=== PATIENT | male | born 1975 | race Caucasian/White ===

== ENCOUNTER 2024-12-26 11:05 | Inpatient (IN) | payer OTHER ==
[~2024-12-26] VITALS: Ht 177.8 cm; Wt 143.8 kg
[~2024-12-26 11:05] MED LIST: CEPH-558 PO; DOXY-354 PO; LISI-893 PO; SERT-158 PO
[2024-12-26] MEDS ORDERED: ZOLPIDEM TARTRATE 10 MG TABLET PO PRN (11:45)
[2024-12-26 12:03] LABS: PLATELET COUNT (AUTO) 274 K/uL (150-450); RED BLOOD CELL COUNT(AUTO) 5.33 MIL/uL (4.50-5.90); RED CELL DISTRIBUTION WIDTH 14.5 % (11.5-14.5); WHITE BLOOD COUNT (AUTO) 8.9 K/uL (4.5-11.0)
[2024-12-26 12:04] LABS: COVID AG,FIA SOURCE NASAL SWAB
[2024-12-26 12:10] LABS: CALCIUM, TOTAL 8.2 mg/dL (8.8-10.5); CREATININE 0.65 mg/dL (0.60-1.30); GLOMERULAR FILTR. RATE CALC > 60 mL/min (>60); GLUCOSE,RANDOM 114 mg/dL (70-110); SODIUM SERUM 139 mmol/L (136-145); UREA NITROGEN, BLOOD 10 mg/dL (7-18)
[2024-12-26 12:18] LABS: APPEARANCE,URINE CLEAR (CLEAR); GLUCOSE, URINE (UA) NEGATIVE (NEGATIVE); LEUKOCYTE ESTERASE ,URINE NEGATIVE (NEGATIVE); NITRATE,URINE NEGATIVE (NEGATIVE); OCCULT BLOOD,URINE NEGATIVE (NEGATIVE); PH,URINE DRUG SCREEN 6.5 (5.0-8.0); SPECIFIC GRAVITIY, URINE 1.026 (1.003-1.030)
[2024-12-26 12:23] LABS: SARS-COV2 (COVID) ANTIGEN,FIA Negative (Negative)
[2024-12-26 12:25] LABS: ALCOHOL, URINE DRUG SCREEN NEGATIVE (NEGATIVE); AMPHET/METH SCREEN,URINE NEGATIVE (NEGATIVE); BARBITURATE SCREEN, URINE NEGATIVE (NEGATIVE); CANNABINOID SCREEN,URINE NEGATIVE (NEGATIVE); COCAINE SCREEN,URINE NEGATIVE (NEGATIVE); METHADONE SCREEN, URINE NEGATIVE (NEGATIVE)
[2024-12-26] MEDS ORDERED: ZOLPIDEM TARTRATE 5 MG TABLET PO PRN (14:15)
[2024-12-26] MEDS ORDERED: MAGNESIUM HYDROXIDE SUSPENSION 30 ML UDCUP PO PRN (14:15)
[2024-12-26] MEDS ORDERED: ONDANSETRON HCL 4 MG/2 ML VIAL IVP PRN (14:15)
[2024-12-26] MEDS ORDERED: BISACODYL 10 MG RECTAL RECTAL SUPPOSITORY PR PRN (14:15)
[2024-12-26] MEDS ORDERED: ACETAMINOPHEN 325 MG TABLET PO PRN (14:15)
[2024-12-26 15:28] VITALS: BP 143/89; PULSE 103; RESP 18; TEMP 98.1; O2SAT 99
[2024-12-26] MEDS: SERTRALINE HCL 50 MG TABLET PO SCH (15:48)
[2024-12-26] MEDS: VANCOMYCIN 1.5 GM/WATER(PEG) 300 ML IV ONE (15:48)
[2024-12-26] MEDS: SODIUM CHLORIDE 0.9% 1,000 ML IV ONE (15:48)
[2024-12-26] MEDS: HEPARIN SODIUM,PORCINE 5,000 UNITS/ML VIAL SQ SCH (15:48)
[2024-12-26 20:00] VITALS: BP 121/85; PULSE 105; RESP 18; TEMP 100.2; O2SAT 93
[2024-12-26] MEDS: HYDROCODONE/ACETAMINOPHEN 5-325 MG TABLET PO PRN (20:17)
[2024-12-26] MEDS: DOCUSATE SODIUM 100 MG CAPSULE PO SCH (21:00)
[2024-12-27] MEDS: VANCOMYCIN 1.25 GM/WATER(PEG) 250 ML IV SCH (00:10)
[2024-12-27 05:00] VITALS: BP 112/81; PULSE 89; RESP 18; TEMP 97.5; O2SAT 93
[2024-12-27] MEDS ORDERED: SODIUM CHLORIDE 0.9% 250 ML IV ONE (06:47)
[2024-12-27 06:54] LABS: PLATELET COUNT (AUTO) 239 K/uL (150-450); RED BLOOD CELL COUNT(AUTO) 4.70 MIL/uL (4.50-5.90); RED CELL DISTRIBUTION WIDTH 14.2 % (11.5-14.5); WHITE BLOOD COUNT (AUTO) 9.1 K/uL (4.5-11.0)
[2024-12-27 07:02] LABS: CALCIUM, TOTAL 7.9 mg/dL (8.8-10.5); CREATININE 0.62 mg/dL (0.60-1.30); GLOMERULAR FILTR. RATE CALC > 60 mL/min (>60); GLUCOSE,RANDOM 117 mg/dL (70-110); SODIUM SERUM 141 mmol/L (136-145); UREA NITROGEN, BLOOD 8 mg/dL (7-18)
[2024-12-27 07:14] LABS: CHOL/HDL RATIO 3.0 (4.2-7.3); LDL CHOL (CALC.) 55.0 mg/dL (0-130)
[2024-12-27 08:30] VITALS: BP 127/84; PULSE 79; RESP 18; TEMP 97.9; O2SAT 96
[2024-12-27] MEDS: PANTOPRAZOLE SODIUM 40 MG DR TABLET PO SCH (08:37)
[2024-12-27 15:15] VITALS: BP 136/70; PULSE 72; RESP 20; TEMP 98.1; O2SAT 92
[2024-12-27 17:34] VITALS: O2SAT 93
[2024-12-27 19:41] VITALS: BP 137/77; PULSE 93; RESP 20; TEMP 97.2; O2SAT 93
[2024-12-28 04:14] VITALS: BP 124/83; PULSE 87; RESP 20; TEMP 97.7; O2SAT 92
[2024-12-28 07:11] LABS: PLATELET COUNT (AUTO) 225 K/uL (150-450); RED BLOOD CELL COUNT(AUTO) 4.85 MIL/uL (4.50-5.90); RED CELL DISTRIBUTION WIDTH 13.9 % (11.5-14.5); WHITE BLOOD COUNT (AUTO) 8.3 K/uL (4.5-11.0)
[2024-12-28 07:19] LABS: CALCIUM, TOTAL 7.7 mg/dL (8.8-10.5); CREATININE 0.55 mg/dL (0.60-1.30); GLOMERULAR FILTR. RATE CALC > 60 mL/min (>60); GLUCOSE,RANDOM 118 mg/dL (70-110); SODIUM SERUM 135 mmol/L (136-145); UREA NITROGEN, BLOOD 9 mg/dL (7-18)
[2024-12-28 08:05] VITALS: BP 118/75; PULSE 80; RESP 20; TEMP 97.7; O2SAT 93
[2024-12-28 15:45] VITALS: BP 137/80; PULSE 86; RESP 20; TEMP 98.6; O2SAT 94
[2024-12-28 19:34] VITALS: BP 137/84; PULSE 89; RESP 18; TEMP 98.4; O2SAT 96
[2024-12-28] MEDS: GABAPENTIN 300 MG CAPSULE PO SCH (20:18)
[2024-12-29 04:59] VITALS: BP 131/81; PULSE 81; RESP 18; TEMP 98.1; O2SAT 96
[2024-12-29] MEDS ORDERED: SODIUM CHLORIDE 0.9% 250 ML IV ONE (05:05)
[2024-12-29 06:59] LABS: PLATELET COUNT (AUTO) 262 K/uL (150-450); RED BLOOD CELL COUNT(AUTO) 5.34 MIL/uL (4.50-5.90); RED CELL DISTRIBUTION WIDTH 14.2 % (11.5-14.5); WHITE BLOOD COUNT (AUTO) 8.2 K/uL (4.5-11.0)
[2024-12-29 07:25] LABS: CALCIUM, TOTAL 8.3 mg/dL (8.8-10.5); CREATININE 0.55 mg/dL (0.60-1.30); GLOMERULAR FILTR. RATE CALC > 60 mL/min (>60); GLUCOSE,RANDOM 112 mg/dL (70-110); SODIUM SERUM 136 mmol/L (136-145); UREA NITROGEN, BLOOD 7 mg/dL (7-18)
[2024-12-29] MEDS: MORPHINE SULFATE 2 MG/ML SYRINGE IVP PRN (08:46)
[2024-12-29 08:51] VITALS: BP 135/74; PULSE 65; RESP 18; TEMP 98.1; O2SAT 95
[2024-12-29] MEDS ORDERED: GABA-1181 PO ×2 (10:20)
[2024-12-29] MEDS ORDERED: SULF1TAB42 PO (10:21)
[2024-12-29 16:34] VITALS: BP 132/80; PULSE 83; RESP 18; TEMP 98; O2SAT 95
[2024-12-30] MEDS ORDERED: SERT-439 PO (12:40)
== END 2024-12-29 18:30 | disposition home or self-care (01) | DRG 603 ==
LOC: EMS 11:10 → EDH 12:54 → 6S 14:55
PROVIDERS: ADMIT Internal Medicine; ATTEND Internal Medicine
PROC: GZ52ZZZ Individual Psychotherapy, Cognitive (ICD-10-PCS; principal; 2024-12-26)
PROC: GZ56ZZZ Individual Psychotherapy, Supportive (ICD-10-PCS; 2024-12-26)
PROC: GZ58ZZZ Individual Psychotherapy, Cognitive-Behavioral (ICD-10-PCS; 2024-12-26)
DX: L03.115 Cellulitis of right lower limb (principal); F33.2 Major depressive disorder, recurrent severe without psychotic features; Z59.00 Homelessness unspecified; Z68.42 Body mass index [BMI] 45.0-49.9, adult; E44.0 Moderate protein-calorie malnutrition; R45.851 Suicidal ideations; I10 Essential (primary) hypertension; D63.8 Anemia in other chronic diseases classified elsewhere; G62.9 Polyneuropathy, unspecified; B35.3 Tinea pedis; E86.0 Dehydration; G89.29 Other chronic pain; J44.9 Chronic obstructive pulmonary disease, unspecified; L03.116 Cellulitis of left lower limb; N32.81 Overactive bladder; E66.01 Morbid (severe) obesity due to excess calories; Z20.822 Contact with and (suspected) exposure to COVID-19; S90.822A Blister (nonthermal), left foot, initial encounter; S90.821A Blister (nonthermal), right foot, initial encounter; X58.XXXA Exposure to other specified factors, initial encounter; Y93.89 Activity, other specified; Y92.89 Other specified places as the place of occurrence of the external cause; Y99.8 Other external cause status; Z88.8 Allergy status to other drugs, medicaments and biological substances; Z99.3 Dependence on wheelchair
CPT/HCPCS: 80048; 80061; 80202; 80307; 81003; 83036; 85025; 97162; 99285; G0480; J1644; J2270; J7030; J7050

== ENCOUNTER 2025-03-27 00:20 | Emergency (ER) | payer MEDICAID, OTHER ==
[~2025-03-27] VITALS: Ht 177.8 cm; Wt 127.3 kg
[~2025-03-27 00:20] MED LIST changes: -CEPH-558 PO; -DOXY-354 PO; +GABA-1181 PO
[2025-03-27] MEDS: GABAPENTIN 300 MG CAPSULE PO ONE (03:45)
[2025-03-27] MEDS: KETOROLAC TROMETHAMINE 30 MG/ML VIAL IM ONE (03:45)
[2025-03-27 05:00] VITALS: BP 134/75; PULSE 72; RESP 16; TEMP 98.3; O2SAT 98
== END 2025-03-27 05:20 | disposition home or self-care (01) ==
LOC: EMS 00:22
DX: G62.9 Polyneuropathy, unspecified (principal); F32.A Depression, unspecified; I10 Essential (primary) hypertension; G89.29 Other chronic pain; Z98.890 Other specified postprocedural states; Z88.5 Allergy status to narcotic agent; Z79.899 Other long term (current) drug therapy
CPT/HCPCS: 99283; 96372; J1885